=== PATIENT | male | born 1975 | race Two or more races ===

== ENCOUNTER 2020-12-26 08:40 | Emergency (ER) | payer OTHER ==
[~2020-12-26] VITALS: Ht 167.6 cm; Wt 69.2 kg
--- NOTE | 2020-12-26 09:59 | NUR ---
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
[2020-12-26] MEDS ORDERED: KETOROLAC 30 MG/1 ML IM ONE (10:30)
[2020-12-26] MEDS ORDERED: KETOROLAC 30 MG/1 ML ONE (11:20)
[2020-12-26 11:50] VITALS: BP 135/85
== END 2020-12-26 11:52 | disposition home or self-care (01) ==
LOC: ED 11:20
DX: M77.8 Other enthesopathies, not elsewhere classified (principal)
CPT/HCPCS: 99283

== ENCOUNTER 2021-01-03 09:01 | Emergency (ER) | payer OTHER ==
[~2021-01-03] VITALS: Ht 167.6 cm; Wt 67.0 kg
--- NOTE | 2021-01-03 09:49 | NUR ---
PT PRESENTS TO ED WITH C/O R SIDED ARM PAIN X3 MONTHS, PT STATES PAIN IS SPECIFICALLY IN THE MUSCLE AND HURTS TO BEND HAND OR MAKE FIST. 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 PT HAS TRIED ICE AND IBUPROFEN, STATES IT GIVES MINIMAL RELIEF. PT HAS NO CARDIAC HX OR OTHER PMH. PT A&O, RESPS EVEN AND UNLABORED, VSS, NADN.
[2021-01-03 09:59] VITALS: BP 117/69
[2021-01-03] MEDS ORDERED: KETOROLAC 30 MG/1 ML ONE (10:21)
[2021-01-03] MEDS ORDERED: KETOROLAC 30 MG/1 ML IM ONE (10:30)
--- NOTE | 2021-01-03 10:30 | NUR ---
DISCHARGE INSTRUCTIONS REVIEWED, PT EDUCATED ON FOLLOW-UP AND RETURN CRITERIA, VERBALIZED UNDERSTANDING. PT A&O, RESPS EVEN AND UNLABORED, VSS, NADN. AMBULATORY TO DISCHARGE WITH STEADY GAIT, NO COMPLAINTS AT TIME OF DISCHARGE.
== END 2021-01-03 10:33 | disposition home or self-care (01) ==
LOC: ED 09:25
DX: M77.8 Other enthesopathies, not elsewhere classified (principal); R94.31 Abnormal electrocardiogram [ECG] [EKG]
CPT/HCPCS: 93005; 96372; 99283; J1885